=== PATIENT | female | born 1965 | race Caucasian/White ===

== ENCOUNTER → 2021-05-12 | Outpatient (CLI) | payer MEDICARE, OTHER ==
[~2021-05-12] MED LIST: GADOTERATE 7.5 MMOL/15ML VIAL. IVP ONE
--- NOTE | 2021-05-14 08:50 | KCIC ---
EXAMINATION: MRI abdomen with and without IV contrast. INDICATION:55 years, Female, liver mass seen on CT exam, further evaluation. TECHNIQUE: Multiplanar multisequence MRI of the abdomen was performed. COMPARISON: CT dated 03/14/2021. FINDINGS: The study is degraded by respiratory motion artifact LOWER CHEST: Unremarkable. ABDOMEN: Normal size and morphology of the liver with homogeneous enhancement. No steatosis or iron deposition . There is a 3.5 cm T2 hyperintense lesion in hepatic segment 7 demonstrates peripheral discontinuous nodular enhancement with progressive fill-in. Cholecystectomy. Prominent central intrahepatic and ex trahepatic biliary ducts with smooth tapering distally, the common bile duct measures 1.0 cm in maxim um diameter, findings likely secondary to postcholecystectomy status. Spleen and pancreas are unremarkable. No adrenal nodule. No hydronephrosis in either kidney. Simple a ppearing 3.0 cm left renal cyst. No bowel dilation. No lymphadenopathy in the abdomen by size criteri a. No ascites. Normal caliber abdominal aorta. Mesenteric arteries and portal vein are patent. MUSCULOSKELETAL: No suspicious osseous lesion. IMPRESSION: Liver segment VII, 3.5 cm lesion is consistent with hemangioma. No follow-up is required. Electronically signed by: Annabelle Serna MD (05/14/2021 8:48 AM) [id number]
== END ==
LOC: KCIC MRI 08:21
PROVIDERS: ATTEND Family Medicine
DX: R16.0 Hepatomegaly, not elsewhere classified (principal); K76.9 Liver disease, unspecified; Z90.49 Acquired absence of other specified parts of digestive tract
CPT/HCPCS: 74183; A9575